=== PATIENT | male | born 1950 | race Caucasian/White ===

== ENCOUNTER → 2018-05-28 | Outpatient (CLI) | payer OTHER | LOC: LAB SHORT 08:01 → PLD 08:01 → EDSTATUS 10:06 | DX: D22.61 Melanocytic nevi of right upper limb, including shoulder (principal) | CPT/HCPCS: 88305 ==

== ENCOUNTER 2020-05-24 06:10 | Day surgery (SDC) | payer MEDICARE, OTHER ==
[~2020-05-24] VITALS: Ht 177.8 cm; Wt 81.0 kg
[~2020-05-24 06:10] MED LIST: ATOR10 PO; CENTRUM SILVER1 EAC2 PO
--- NOTE | 2020-05-24 06:58 | NUR ---
Ambulatory in Day Surgery History, Chart, Medications and Allergies reviewed before start of procedure. Lungs clear T/O to Auscultation. Pre-Op teaching done. Pt verbalizes understanding. Patient confirms NPO status and agrees with scheduled surgery.
--- NOTE | 2020-05-24 11:46 | NUR ---
Patient up to Ambulate independently. Gait steady. Discharge instructions reviewed with patient. Patient verbalizes understanding. Copy given to patient to take home. procedure site clean, dry, intact with no visible drainage, swelling, erythema or bruising noted. Patient States Post-Procedure ride home has been arranged. Discharged via wheelchair to private car for ride home. ALL BELONINGS RETURNED TO PATIENT.
--- NOTE | 2020-05-25 10:09 | NUR ---
05/25/20 1009 Papst,Gerson D VERIFICATION CORECTION OF WOUND CLASS
== END 2020-05-24 23:12 | disposition home or self-care (01) ==
LOC: ORSCMMR 06:10
PROVIDERS: Surgery
PROC: 8E0W4CZ Robotic Assisted Procedure of Trunk Region, Percutaneous Endoscopic Approach (ICD-10-PCS; principal; 2020-05-24 07:30)
PROC: 0YUA4JZ Supplement Bilateral Inguinal Region with Synthetic Substitute, Percutaneous Endoscopic Approach (ICD-10-PCS; principal; 2020-05-24 07:30)
DX: K40.20 Bilateral inguinal hernia, without obstruction or gangrene, not specified as recurrent (principal); I10 Essential (primary) hypertension; E78.5 Hyperlipidemia, unspecified; Z79.899 Other long term (current) drug therapy
CPT/HCPCS: 49650; S2900; A9270-GY; C1781; J0690; J1100; J1885; J2405; J2704; J3010; J7120

== ENCOUNTER → 2022-02-07 | Outpatient (CLI) | payer MEDICARE, OTHER | END | disposition home or self-care (01) | LOC: LAB SHORT 14:46 | DX: C44.319 Basal cell carcinoma of skin of other parts of face (principal) | CPT/HCPCS: 88305 ==

== ENCOUNTER 2023-12-24 12:12 | Day surgery (SDC) | payer MEDICARE, OTHER ==
[~2023-12-24] VITALS: Ht 177.8 cm; Wt 80.5 kg
[~2023-12-24 12:12] MED LIST changes: -CENTRUM SILVER1 EAC2 PO; +FLONASE ALLERG9.9 M2; +MULTI-VITAMIN1 EAC2 PO
[2023-12-24 14:35] VITALS: BP 111/70
== END 2023-12-24 14:37 | disposition home or self-care (01) ==
LOC: ORSCSDS 12:12
PROVIDERS: Surgery
PROC: 0DBP8ZX Excision of Rectum, Via Natural or Artificial Opening Endoscopic, Diagnostic (ICD-10-PCS; principal; 2023-12-24 13:30)
PROC: 0DBN8ZX Excision of Sigmoid Colon, Via Natural or Artificial Opening Endoscopic, Diagnostic (ICD-10-PCS; principal; 2023-12-24 13:30)
PROC: 0DBK8ZX Excision of Ascending Colon, Via Natural or Artificial Opening Endoscopic, Diagnostic (ICD-10-PCS; principal; 2023-12-24 13:30)
PROC: 0DBL8ZX Excision of Transverse Colon, Via Natural or Artificial Opening Endoscopic, Diagnostic (ICD-10-PCS; principal; 2023-12-24 13:30)
DX: Z12.11 Encounter for screening for malignant neoplasm of colon (principal); D12.2 Benign neoplasm of ascending colon; D12.3 Benign neoplasm of transverse colon; D12.5 Benign neoplasm of sigmoid colon; D12.8 Benign neoplasm of rectum; K57.30 Diverticulosis of large intestine without perforation or abscess without bleeding; K64.8 Other hemorrhoids; Z86.010 Personal history of colon polyps; E78.5 Hyperlipidemia, unspecified; R97.20 Elevated prostate specific antigen [PSA]; Z79.899 Other long term (current) drug therapy
CPT/HCPCS: 88305; J2704; J7120